=== PATIENT | female | born 1960 | race Caucasian/White ===

== ENCOUNTER 2022-07-19 06:06 | Day surgery (SDC) | payer BC ==
[2022-07-19] MEDS ORDERED: Lactated Ringers 1,000 ML IV SCH (07:00)
[2022-07-19] MEDS ORDERED: Xylocaine-Mpf 2% 5 Ml Vial ONE (07:28)
[2022-07-19] MEDS ORDERED: DIPRIVAN 200 MG/20 ML IV ONE ×2 (07:28→07:51)
[2022-07-19] MEDS ORDERED: ROBINUL ONE (07:45)
[2022-07-19] MEDS ORDERED: ATROPINE SULFATE 1MG ONE (07:48)
[2022-07-19 09:11] VITALS: BP 114/62; PULSE 57; O2SAT 100
--- NOTE | 2022-07-19 11:21 | OP ---
SURGERY DATE: 07/19/2022 SURGERY TIME: 739 PREOPERATIVE DIAGNOSIS: 1. SCREENING EXAM. POSTOPERATIVE DIAGNOSIS: 1. MILD COLITIS AND SCATTERED DIVERTICULA, OTHERWISE NORMAL COLON. PROCEDURE: 1. Colonoscopy. SURGEON: Dr. Long. ANESTHESIA: MAC. Medications given by the Anesthesia Department. BRIEF HISTORY: The patient is a 61 y/o WF presenting now for screening colonoscopy. She reports she had one 10 years previously and she has had no problems found at that time. The patient was felt to need to have screening endoscopy at this point. She was appraised of the risks of the procedure including the risk of perforation, phlebitis, untoward reaction to medication, bleeding, and missed lesions. The patient verbalized her understanding and desired to have the procedure performed. DESCRIPTION OF PROCEDURE: The patient was given the medications by the Anesthesia Department. She had continuous pulse oximetry, ECG monitoring, and intermittent BP monitoring during the examination. She was placed in the left lateral decubitus position. A digital rectal examination was performed and revealed normal anal sphincter tone and no masses. The flexible Olympus pediatric colonoscope was used to intubate the rectum. A view of the colon was developed sequentially to the cecum. Upon insertion and withdrawal, including a retroflex view in the rectum, was noted to be areas of mild colitis as demonstrated by some clear mucus in scattered areas of the colon. There were also noted to be scattered diverticula. No other mucosal lesions being encountered, the scope was removed from the patient who tolerated the procedure well and was sent back to OP recovery in good condition.
== END 2022-07-19 09:24 | disposition home or self-care (01) ==
LOC: SDC 06:06
PROVIDERS: ATTEND Family Medicine
DX: Z12.11 Encounter for screening for malignant neoplasm of colon (principal); K52.9 Noninfective gastroenteritis and colitis, unspecified; K57.30 Diverticulosis of large intestine without perforation or abscess without bleeding
CPT/HCPCS: J0461; J2704